=== PATIENT | female | born 1950 ===

== ENCOUNTER 2017-01-12 07:12 | Emergency (ER) | payer OTHER ==
[2017-01-12 07:24] VITALS: BMI 24.7
[2017-01-12 07:40] VITALS: TEMP 98.9
[2017-01-12] MEDS ORDERED: Sodium Chloride 0.9% 1,000 ML IV ONE (07:57)
[2017-01-12] MEDS ORDERED: Sodium Chloride 0.9% 1,000 ML ONE (08:02)
[2017-01-12 08:18] LABS: BASO # 0.1 K/uL (0.0-0.2); BASO % 0.9 % (0.0-2.0); EOS # 0.1 K/uL (0.0-0.7); EOS % 2.3 % (0.0-4.0); HEMATOCRIT 36.8 % (34.0-47.0); LYMPH # 1.7 K/uL (1.0-4.3); LYMPH % 27.5 % (20.0-40.0); MEAN CELL VOLUME 91.5 fL (81.0-99.0); MEAN CORPUSCULAR HGB CONC 33.8 g/dL (33.0-37.0); MEAN PLATELET VOLUME 7.4 fL (7.2-11.7); MONO # 0.5 K/uL (0.0-0.8); MONO % 8.7 % (0.0-10.0); RED CELL DISTRIBUTION WIDTH 12.9 % (11.5-14.5); WHITE BLOOD COUNT 6.2 K/uL (4.8-10.8)
--- NOTE | 2017-01-12 08:20 | C.PDOC ---
History Of Present Illness 66 y/o female presents to ED with complaints of generalized weakness, body aches and feeling shaky for 1 month. Patient states she had blood work done by PMD that was "normal", and she was instructed to follow up with Crossing Supervisor ( DR. Negron). She has rheumatologic blood tests done already, and is scheduled to have test results viewed today by Dr. Negron. Patient denies chest pain, shortness of breath, fever, nausea, vomiting, diarrhea, abdominal pain, cough, runny nose, sore throat, ear pain, dysuria. Time Seen by Provider: 01/12/17 07:39 Chief Complaint (Nursing): Weakness/Neurological Deficit History Per: Patient History/Exam Limitations: no limitations Onset/Duration Of Symptoms: Persistent Current Symptoms Are (Timing): Still Present Past Medical History Reviewed: Historical Data, Nursing Documentation, Vital Signs Vital Signs: Last Vital Signs Temp 98.9 F 01/12/17 07:25 Pulse 75 01/12/17 09:56 Resp 18 01/12/17 09:56 BP 102/62 01/12/17 09:56 Pulse Ox 99 01/12/17 09:56 - Medical History PMH: HTN Surgical History: Cholecystectomy Family History: States: No Known Family Hx - Social History Hx Alcohol Use: No Hx Substance Use: No - Immunization History Hx Tetanus Toxoid Vaccination: Yes Hx Influenza Vaccination: Yes Hx Pneumococcal Vaccination: Yes Review Of Systems Except As Marked, All Systems Reviewed And Found Negative. Constitutional: Positive for: Weakness. Negative for: Fever, Chills Cardiovascular: Negative for: Chest Pain, Palpitations Respiratory: Negative for: Cough, Shortness of Breath Gastrointestinal: Negative for: Nausea, Vomiting, Abdominal Pain, Diarrhea Genitourinary: Negative for: Dysuria, Hematuria Skin: Negative for: Rash Neurological: Negative for: Headache, Dizziness Physical Exam - Physical Exam Appears: Well, Non-toxic, No Acute Distress Skin: Normal Color, Warm, Dry, No Rash Head: Normacephalic Eye(s): bilateral: Normal Inspection Oral Mucosa: Moist Neck: Normal ROM Cardiovascular: Rhythm Regular Respiratory: Normal Breath Sounds, No Rales, No Rhonchi, No Wheezing Gastrointestinal/Abdominal: Normal Exam, Bowel Sounds, Soft, No Tenderness Extremity: Normal ROM, No Pedal Edema, No Calf Tenderness Neurological/Psych: Oriented x3, Normal Speech, Normal Cognition, Normal Motor, Normal Sensation Gait: Steady ED Course And Treatment - Laboratory Results Result Diagrams: 01/12/17 08:11 01/12/17 08:11 O2 Sat by Pulse Oximetry: 96 (RA) Pulse Ox Interpretation: Normal Progress Note: Blood work ordered and reviewed. Patient given IV NS bolus, IV toradol. Reevaluation Time: 09:45 Reassessment Condition: Improved (Patient reassessed, is currently resting comfortably, in no current pain/distress. Blood work unremarkable. Patient instructed to follow up with Dr. Negron within 1 week. She understands she should return to ED if symptoms worsen.) Disposition Counseled Patient/Family Regarding: Studies Performed, Diagnosis, Need For Followup - Disposition Referrals: Lizandro Negron MD [Staff Provider] - Peter Varela DO [Staff Provider] - Disposition: HOME/ ROUTINE Disposition Time: 09:45 Condition: STABLE Additional Instructions: USTED NECESITA SEGUIR CON EL DR NEGRON DENTRO DE 1 SEMANA BEBER MUCHO LQUIDO USE MEDICAMENTOS PARA EL DOLOR KAMRAN SEA NECESARIO DEVUELVA A LA ELGIN DE EMERGENCIA SI LOS SNTOMAS EMPEORARAN Prescriptions: Naproxen [Naprosyn Tab] 375 mg PO BID PRN #15 tab PRN Reason: pain Instructions: Weakness (ED) Forms: General Discharge Instructions, [facility] (Burkinan) Print Language: SETSWANA - Clinical Impression Clinical Impression: Generalized weakness, Body aches - PA / PHOTOGRAPHIC PRESS SCREWMAKER / Resident Statement / has examined the patient and agrees with the treatment plan. - Scribe Statement The provider has reviewed the documentation as recorded by the Robby Boo All medical record entries made by the Scribkelin were at my direction and personally dictated by me. I have reviewed the chart and agree that the record accurately reflects my personal performance of the history, physical exam, medical decision making, and the department course for this patient. I have also personally directed, reviewed, and agree with the discharge instructions and disposition.
[2017-01-12 08:27] LABS: CHLORIDE 105 mmol/L (98-107)
[2017-01-12 08:28] LABS: POTASSIUM 3.9 mmol/L (3.6-5.2); SODIUM 144 mmol/L (132-148)
[2017-01-12 08:30] LABS: AST/SGOT 27 U/L (14-36); BILIRUBIN,TOTAL 0.4 mg/dL (0.2-1.3); CARBON DIOXIDE 24 mmol/L (22-30); GFR AFRICAN-AMERICAN > 60
[2017-01-12 08:31] LABS: ALKALINE PHOSPHATASE 95 U/L (38-126); ALT/SGPT 35 U/L (9-52); BLOOD UREA NITROGEN 9 mg/dL (7-17); CALCIUM 9.8 mg/dl (8.6-10.4); GLUCOSE,RANDOM 124 mg/dL (65-105); TOTAL PROTEIN 7.5 g/dL (6.3-8.3)
[2017-01-12 09:57] VITALS: BP 102/62; PULSE 75; RESP 18
--- NOTE | 2017-01-13 19:58 | CARD ---
APPROVED REPORT EKG Measurement Heart [id number] <Conclusion> Normal sinus rhythm Normal ECG
[2017-01-17 08:04] VITALS: O2SAT 96
== END 2017-01-12 09:57 | disposition home or self-care (01) ==
LOC: C.ER 07:12
DX: R53.1 Weakness (principal)
CPT/HCPCS: 80053; 82550; 82948; 85025; 93005; 96361; 96374; 99285; J1885; J7040

== ENCOUNTER 2017-01-28 07:37 | Emergency (ER) | payer OTHER ==
[2017-01-28 07:37] VITALS: BMI 24.7
[2017-01-28 07:47] VITALS: RESP 18
[2017-01-28] MEDS ORDERED: Dexamethasone 4 mg/1 ml IM STA (08:27)
[2017-01-28] MEDS ORDERED: Dexamethasone 4 mg/1 ml ONE (08:29)
[2017-01-28 09:11] VITALS: BP 103/67; PULSE 66; TEMP 98.1; O2SAT 96
--- NOTE | 2017-01-28 09:28 | C.PDOC ---
History Of Present Illness 66-year-old female, presents to the emergency department with complaints of pain throughout her body. Patient reports she was evaluated for similar symptoms several days ago. States her pain is in bilateral shoulders, hands, hips, back. Patient denies fever, shortness of breath, nausea/vomiting, or any other associated symptoms. No other complaints at this time. Time Seen by Provider: 01/28/17 07:59 Chief Complaint (Nursing): Medical Clearance History Per: Patient History/Exam Limitations: no limitations Onset/Duration Of Symptoms: Days Current Symptoms Are (Timing): Still Present Severity: Moderate Past Medical History Reviewed: Historical Data, Nursing Documentation, Vital Signs Vital Signs: Last Vital Signs Temp 98.1 F 01/28/17 09:10 Pulse 66 01/28/17 09:10 Resp 18 01/28/17 09:10 BP 103/67 01/28/17 09:10 Pulse Ox 96 01/28/17 18:47 - Medical History PMH: HTN Surgical History: Cholecystectomy Family History: States: No Known Family Hx - Social History Hx Alcohol Use: No Hx Substance Use: No - Immunization History Hx Tetanus Toxoid Vaccination: Yes Hx Influenza Vaccination: Yes Hx Pneumococcal Vaccination: Yes Review Of Systems Except As Marked, All Systems Reviewed And Found Negative. Physical Exam - Physical Exam Appears: Well, No Acute Distress Skin: Normal Color, Warm, Dry, No Rash Head: Atraumatic, Normacephalic Eye(s): bilateral: Normal Inspection, PERRL, EOMI Ear(s): Bilateral: Normal Nose: Normal Oral Mucosa: Moist Throat: Normal Neck: Normal ROM, Supple Cardiovascular: Rhythm Regular, No Friction Rub, No Murmur Respiratory: Normal Breath Sounds, No Stridor, No Wheezing Gastrointestinal/Abdominal: Normal Exam, Soft, No Tenderness Back: Normal Inspection, No CVA Tenderness, No Vertebral Tenderness, No Paraspinal Tenderness Extremity: Normal ROM, No Tenderness, No Swelling Pulses: Left Radial: Normal, Right Radial: Normal, Left Dorsalis Pedis: Normal, Right Dorsalis Pedis: Normal Neurological/Psych: Oriented x3, Normal Speech, Normal Cranial Nerves, Normal Motor, Normal Sensation Gait: Steady ED Course And Treatment O2 Sat by Pulse Oximetry: 96 (on RA) Pulse Ox Interpretation: Normal Medical Decision Making Medical Decision Making: The patient has a normal physical exam. On re-exam, the patient reports improvement of symptoms. Lungs are CTA, heart is RRR, Abdomen is soft, non- tender and tolerating PO well. ambulatory in the ED with steady gait. Follow up with the medical doctor/clinic within 1-2 days. Return if worsened. Disposition - Disposition Referrals: Peter Varela DO [Staff Provider] - Disposition: HOME/ ROUTINE Disposition Time: 09:24 Condition: GOOD Additional Instructions: Follow up with the medical doctor as scheduled without fail. Return if worsened. Prescriptions: Naproxen [Naprosyn Tab] 375 mg PO BID #30 tab traMADol [Ultram] 50 mg PO Q6 PRN #10 tab PRN Reason: Pain Instructions: Arthritis (ED) Forms: [employer] (Maltese) Print Language: LUXEMBOURGISH - Clinical Impression Clinical Impression: Joint pain - Scribe Statement The provider has reviewed the documentation as recorded by the Scribe (Linda Mai) All medical record entries made by the Scribe were at my direction and personally dictated by me. I have reviewed the chart and agree that the record accurately reflects my personal performance of the history, physical exam, medical decision making, and the department course for this patient. I have also personally directed, reviewed, and agree with the discharge instructions and disposition.
== END 2017-01-28 09:58 | disposition home or self-care (01) ==
LOC: C.ER 07:37
DX: M25.511 Pain in right shoulder (principal)
CPT/HCPCS: 82948; 96372; 99284; J1100; J1885

== ENCOUNTER 2017-01-28 15:15 | Emergency (ER) | payer OTHER ==
[2017-01-28 15:16] VITALS: BMI 24.7
[2017-01-28] MEDS ORDERED: Sodium Chloride 0.9% 1,000 ML IV ONE (16:34)
[2017-01-28] MEDS ORDERED: Sodium Chloride 0.9% 1,000 ML ONE (16:48)
[2017-01-28 16:51] LABS: BASO # 0.1 K/uL (0.0-0.2); BASO % 1.4 % (0.0-2.0); EOS % 0.5 % (0.0-4.0); HEMATOCRIT 38.4 % (34.0-47.0); LYMPH % 14.9 % (20.0-40.0); MEAN CELL VOLUME 91.8 fL (81.0-99.0); MEAN CORPUSCULAR HEMOGLOBIN 31.5 pg (27.0-31.0); MEAN CORPUSCULAR HGB CONC 34.3 g/dL (33.0-37.0); MEAN PLATELET VOLUME 7.5 fL (7.2-11.7); MONO # 0.1 K/uL (0.0-0.8); MONO % 0.9 % (0.0-10.0); NRBC % 0.3 % (0.0-2.0); RED CELL DISTRIBUTION WIDTH 12.8 % (11.5-14.5)
[2017-01-28 16:58] LABS: CHLORIDE 105 mmol/L (98-107)
[2017-01-28 16:59] LABS: POTASSIUM 4.7 mmol/L (3.6-5.2); SODIUM 142 mmol/L (132-148)
[2017-01-28 16:59] LABS: DRAW SITE VBG; VENOUS BLOOD GAS BASE EXCESS -1.7 mmol/L (0.0-2.0); VENOUS BLOOD GAS PCO2 38 mmHg (40-60); VENOUS BLOOD PH 7.39 (7.32-7.43)
[2017-01-28 17:01] LABS: GFR AFRICAN-AMERICAN > 60
[2017-01-28 17:02] LABS: ALB/GLOB RATIO 1.2 (1.0-2.1); ALKALINE PHOSPHATASE 89 U/L (38-126); ALT/SGPT 27 U/L (9-52); AST/SGOT 32 U/L (14-36); BILIRUBIN,TOTAL 0.5 mg/dL (0.2-1.3); BLOOD UREA NITROGEN 11 mg/dL (7-17); CALCIUM 9.7 mg/dl (8.6-10.4); CARBON DIOXIDE 19 mmol/L (22-30); GLUCOSE,RANDOM 262 mg/dL (65-105); TOTAL PROTEIN 8.6 g/dL (6.3-8.3)
[2017-01-28 17:17] LABS: RBC URINE < 1 /hpf (0-3); URINE BILIRUBIN NEGATIVE (NEGATIVE); URINE BLOOD NEGATIVE (NEGATIVE); URINE COLOR Yellow (YELLOW); URINE GLUCOSE (UA) 3+ mg/dL (Normal); URINE KETONE NEGATIVE (NEGATIVE); URINE LEUKOCYTE ESTERASE NEG Leu/uL (Negative); URINE PROTEIN NEGATIVE (NEGATIVE); URINE UROBILINOGEN NORMAL mg/dL (0.2-1.0); WBC URINE 1 /hpf (0-5)
--- NOTE | 2017-01-28 17:18 | C.PDOC ---
History Of Present Illness 66-year-old female, presents to the emergency department with complaints of high blood sugar. patient states she was seen in ER for pain this morning, and was given a shot. When she went home, she noted her blood sugar to be high, resulting in her to return to the ED for evaluation. States pain has improved. Denies any other complaints. Time Seen by Provider: 01/28/17 15:50 Chief Complaint (Nursing): High Blood Sugar History Per: Patient History/Exam Limitations: no limitations Onset/Duration Of Symptoms: Hrs Past Medical History Reviewed: Historical Data, Nursing Documentation, Vital Signs Vital Signs: Last Vital Signs Temp 97.5 F L 01/28/17 17:47 Pulse 94 H 01/28/17 17:47 Resp 20 01/28/17 17:47 BP 118/74 01/28/17 17:47 Pulse Ox 96 01/28/17 17:47 - Medical History PMH: HTN Surgical History: Cholecystectomy Family History: States: No Known Family Hx - Social History Hx Alcohol Use: No Hx Substance Use: No - Immunization History Hx Tetanus Toxoid Vaccination: Yes Hx Influenza Vaccination: Yes Hx Pneumococcal Vaccination: Yes Review Of Systems Except As Marked, All Systems Reviewed And Found Negative. Constitutional: Negative for: Fever, Chills Cardiovascular: Negative for: Chest Pain Respiratory: Negative for: Shortness of Breath Gastrointestinal: Negative for: Nausea, Vomiting Musculoskeletal: Negative for: Back Pain Neurological: Negative for: Weakness, Numbness, Headache, Dizziness Physical Exam - Physical Exam Appears: Well, Non-toxic, No Acute Distress Skin: Normal Color, Warm, Dry, No Rash Head: Atraumatic, Normacephalic Eye(s): bilateral: Normal Inspection, PERRL, EOMI Nose: Normal Throat: Normal Neck: Normal Cardiovascular: Rhythm Regular Respiratory: Normal Breath Sounds Gastrointestinal/Abdominal: Normal Exam Back: Normal Inspection Extremity: Normal ROM ED Course And Treatment - Laboratory Results Result Diagrams: 01/28/17 16:46 01/28/17 16:46 O2 Sat by Pulse Oximetry: 98 Medical Decision Making Medical Decision Making: r/o dka- labs unremarkable. no e/o of dka. pt states feels better. asking for dc. Disposition - Disposition Disposition: HOME/ ROUTINE Disposition Time: 07:00 Condition: STABLE Additional Instructions: please follow up with your doctor return to er with worsening symptoms or concerns. Instructions: Diabetic Hyperglycemia (ED) Forms: [facility] (Kazakh) - Clinical Impression Clinical Impression: Hyperglycemia - Scribe Statement The provider has reviewed the documentation as recorded by the Scribe (Linda Mai) All medical record entries made by the Scribe were at my direction and personally dictated by me. I have reviewed the chart and agree that the record accurately reflects my personal performance of the history, physical exam, medical decision making, and the department course for this patient. I have also personally directed, reviewed, and agree with the discharge instructions and disposition. Provider Attestation: All medical record entries made by the Scribe were at my direction and personally dictated by me. I have reviewed the chart and agree that the record accurately reflects my personal performance of the history, physical exam, medical decision making, and the department course for this patient. I have also personally directed, reviewed, and agree with the discharge instructions and disposition.
[2017-01-28 17:49] VITALS: BP 118/74; PULSE 94; RESP 20; TEMP 97.5
[2017-01-28 20:06] VITALS: O2SAT 98
== END 2017-01-28 17:52 | disposition home or self-care (01) ==
LOC: C.ER 15:15
DX: R73.9 Hyperglycemia, unspecified (principal); I10 Essential (primary) hypertension
CPT/HCPCS: 80053; 81001; 82803; 85025; 85610; 85730; 96360; 99284; J7040

== ENCOUNTER 2017-02-01 14:42 | Emergency (ER) | payer OTHER ==
[2017-02-01 14:42] VITALS: BMI 24.7
[2017-02-01 15:04] VITALS: RESP 18; TEMP 0
--- NOTE | 2017-02-01 17:26 | C.PDOC ---
History Of Present Illness Pt c/o tremors? on/off. Time Seen by Provider: 02/01/17 15:59 Chief Complaint (Nursing): Medical Clearance History Per: Patient, Family Onset/Duration Of Symptoms: Days (about 1 month) Current Symptoms Are (Timing): Still Present Severity: Mild Past Medical History Reviewed: Historical Data, Nursing Documentation, Vital Signs Vital Signs: Last Vital Signs Temp 0 F L 02/01/17 15:02 Pulse 86 02/01/17 14:46 Resp 18 02/01/17 14:46 BP 109/75 02/01/17 14:46 Pulse Ox 98 02/01/17 14:46 - Medical History PMH: Anxiety, HTN Other PMH: Lupus Surgical History: Cholecystectomy Family History: States: Unknown Family Hx - Social History Hx Alcohol Use: No Hx Substance Use: No - Immunization History Hx Tetanus Toxoid Vaccination: Yes Hx Influenza Vaccination: Yes Hx Pneumococcal Vaccination: Yes Review Of Systems Except As Marked, All Systems Reviewed And Found Negative. Constitutional: Negative for: Fever Cardiovascular: Negative for: Chest Pain Respiratory: Negative for: Shortness of Breath Gastrointestinal: Positive for: Constipation (last BM was 2 days ago). Negative for: Vomiting, Abdominal Pain, Diarrhea, Melena, Hematochezia, Hematemesis Musculoskeletal: Negative for: Neck Pain Skin: Negative for: Rash Neurological: Negative for: Weakness, Numbness, Seizures Physical Exam - Physical Exam Appears: Non-toxic, No Acute Distress Skin: Normal Color, Warm, Dry, No Rash Head: Atraumatic, Normacephalic Eye(s): bilateral: Normal Inspection, PERRL, EOMI Neck: Normal ROM, Supple Cardiovascular: Rhythm Regular Respiratory: Normal Breath Sounds, No Accessory Muscle Use Gastrointestinal/Abdominal: Soft, No Tenderness, No Distention Back: No CVA Tenderness Extremity: Normal ROM, No Pedal Edema, No Calf Tenderness Neurological/Psych: Oriented x3, Normal Motor, Normal Sensation, Other (No tremor at present) Other Neurological Findings: Facial Palsy (right, old. ) ED Course And Treatment O2 Sat by Pulse Oximetry: 98 Pulse Ox Interpretation: Normal Disposition Counseled Patient/Family Regarding: Studies Performed, Diagnosis, Need For Followup, Rx Given - Disposition Referrals: Peter Varela DO [Staff Provider] - Disposition: HOME/ ROUTINE Disposition Time: 17:26 Condition: STABLE Additional Instructions: Follow up with your doctor for further evaluation and treatment. Return to the ER if you develop fever, vomiting, abdominal pain, worsening of symptoms or if you have any other concerns. Prescriptions: Polyethylene Glycol 3350 [Miralax] 17 gm PO DAILY #7 packet Forms: [employer] (Citizen Of [place]), Gen Discharge Inst Citizen [place] - Clinical Impression Clinical Impression: Constipation, Intermittent tremor
[2017-02-01 17:30] VITALS: BP 106/68; PULSE 72; O2SAT 96
== END 2017-02-01 17:30 | disposition home or self-care (01) ==
LOC: C.ER 14:42
DX: R25.1 Tremor, unspecified (principal); K59.00 Constipation, unspecified

== ENCOUNTER 2017-02-02 20:59 | Emergency (ER) | payer OTHER ==
[2017-02-02 20:59] VITALS: BMI 24.7
[2017-02-02 21:24] VITALS: PULSE 91; RESP 18
[2017-02-02] MEDS ORDERED: Lactated Ringer's 1,000 ML IVB ONE (22:02)
[2017-02-02] MEDS ORDERED: Lactated Ringer's 1,000 ML ONE (22:09)
[2017-02-02 22:20] LABS: BASO # 0.1 K/uL (0.0-0.2); BASO % 0.6 % (0.0-2.0); EOS # 0.1 K/uL (0.0-0.7); EOS % 1.1 % (0.0-4.0); HEMATOCRIT 42.6 % (34.0-47.0); LYMPH # 2.7 K/uL (1.0-4.3); LYMPH % 20.6 % (20.0-40.0); MEAN CELL VOLUME 92.1 fL (81.0-99.0); MEAN CORPUSCULAR HEMOGLOBIN 30.8 pg (27.0-31.0); MEAN CORPUSCULAR HGB CONC 33.4 g/dL (33.0-37.0); MEAN PLATELET VOLUME 7.7 fL (7.2-11.7); MONO # 0.4 K/uL (0.0-0.8); RED CELL DISTRIBUTION WIDTH 12.4 % (11.5-14.5)
[2017-02-02 22:25] LABS: CHLORIDE 106 mmol/L (98-107); POTASSIUM 3.9 mmol/L (3.6-5.2); SODIUM 142 mmol/L (132-148)
[2017-02-02 22:27] LABS: ALB/GLOB RATIO 1.2 (1.0-2.1); AST/SGOT 29 U/L (14-36); BILIRUBIN,TOTAL 0.6 mg/dL (0.2-1.3); CARBON DIOXIDE 23 mmol/L (22-30); GFR AFRICAN-AMERICAN > 60; TOTAL PROTEIN 8.8 g/dL (6.3-8.3)
[2017-02-02 22:28] LABS: ALKALINE PHOSPHATASE 98 U/L (38-126); ALT/SGPT 43 U/L (9-52); BLOOD UREA NITROGEN 15 mg/dL (7-17); CALCIUM 10.2 mg/dl (8.6-10.4); GLUCOSE,RANDOM 145 mg/dL (65-105); MAGNESIUM 1.8 mg/dL (1.6-2.3)
--- NOTE | 2017-02-02 22:48 | C.PDOC ---
Time Seen by Provider: 02/02/17 21:53 Chief Complaint (Nursing): Abdominal Pain History Per: Patient, Family Onset/Duration Of Symptoms: Hrs (since this afternoon) Current Symptoms Are (Timing): Still Present Severity: Moderate Location Of Pain/Discomfort: Epigastric Quality Of Discomfort: Unable To Describe, "Pain" Associated Symptoms: Nausea, Diarrhea Exacerbating Factors: Food Alleviating Factors: None Last Bowel Movement: Today Additional History Per: Prior Records Past Medical History Reviewed: Historical Data, Nursing Documentation, Vital Signs Vital Signs: Last Vital Signs Temp 97.9 F 02/02/17 21:21 Pulse 91 H 02/02/17 21:21 Resp 18 02/02/17 21:21 BP 104/66 02/02/17 21:21 Pulse Ox 100 02/02/17 21:21 - Medical History PMH: Anxiety, Arthritis, Gastritis, HTN Surgical History: Cholecystectomy Family History: States: Unknown Family Hx - Social History Hx Alcohol Use: No Hx Substance Use: No - Immunization History Hx Tetanus Toxoid Vaccination: Yes Hx Influenza Vaccination: Yes Hx Pneumococcal Vaccination: Yes Review Of Systems Except As Marked, All Systems Reviewed And Found Negative. Constitutional: Negative for: Fever, Weakness Cardiovascular: Negative for: Chest Pain Respiratory: Negative for: Shortness of Breath Gastrointestinal: Negative for: Vomiting, Melena, Hematochezia, Hematemesis Genitourinary: Negative for: Dysuria Musculoskeletal: Negative for: Neck Pain, Back Pain Skin: Negative for: Rash Neurological: Negative for: Weakness, Numbness Physical Exam - Physical Exam Appears: Non-toxic, No Acute Distress Skin: Normal Color, Warm, Dry, No Rash Head: Atraumatic, Normacephalic Eye(s): bilateral: Normal Inspection, PERRL, EOMI Oral Mucosa: Moist Neck: Normal ROM, Supple Cardiovascular: Rhythm Regular Respiratory: Normal Breath Sounds, No Accessory Muscle Use Gastrointestinal/Abdominal: Soft, No Tenderness, No Distention Back: No CVA Tenderness Extremity: Normal ROM Neurological/Psych: Oriented x3, Normal Motor, Normal Sensation ED Course And Treatment - Laboratory Results Result Diagrams: 02/02/17 22:10 02/02/17 22:10 O2 Sat by Pulse Oximetry: 100 Pulse Ox Interpretation: Normal Progress Note: Pt feels much better and wants to go home. No abdominal pain or tenderness. Tolerating PO. Reassessment Condition: Improved Progress - Interventions Interventions:: Observation, Intravenous fluid - Medications Administered Intravenous: Antiemetic, H-2 leelee - Data Reviewed Data Reviewed: Lab, Old records - Patient Status Patient status: Completely improved - Continuity of Care Discussed patient case with:: Patient, Family-HIPPA compliant, ED Nurse - Patient Plan Patient Plan: Discharge, F/U with PCP, Continue present meds Disposition Counseled Patient/Family Regarding: Studies Performed, Diagnosis, Need For Followup, Rx Given - Disposition Referrals: Peter Varela DO [Staff Provider] - Disposition: HOME/ ROUTINE Disposition Time: 22:48 Condition: IMPROVED Additional Instructions: Follow up with your doctor for further evaluation and treatment. Return to the ER if you develop fever, vomiting, worsening of symptoms or if you have any other concerns. Prescriptions: Ondansetron [Zofran] 4 mg PO Q8H PRN #15 tab PRN Reason: Nausea/Vomiting Instructions: Abdominal Pain (ED) Forms: [employer] ([place] Citizen) Print Language: MALAY - Clinical Impression Clinical Impression: Abdominal pain, Diarrhea
[2017-02-02 23:08] VITALS: BP 102/60; TEMP 97.8; O2SAT 98
== END 2017-02-02 23:16 | disposition home or self-care (01) ==
LOC: C.ER 20:59
DX: R19.7 Diarrhea, unspecified (principal); R10.9 Unspecified abdominal pain
CPT/HCPCS: 80053; 83690; 83735; 85025; 96374; 96375; 99283; J2405; J7120

== ENCOUNTER 2017-02-21 09:01 | Emergency (ER) | payer OTHER ==
[2017-02-21 09:02] VITALS: BMI 24.7
[2017-02-21 09:22] VITALS: RESP 20
[2017-02-21] MEDS ORDERED: Sodium Chloride 0.9% 1,000 ML IV ONE (09:49)
[2017-02-21] MEDS ORDERED: Alum-Mag Hydrox-Simethicone Susp (30 mL) PO STA (09:50)
[2017-02-21] MEDS ORDERED: Sodium Chloride 0.9% 1,000 ML ONE (10:08)
[2017-02-21] MEDS ORDERED: Alum-Mag Hydrox-Simethicone Susp (30 mL) ONE (10:08)
--- NOTE | 2017-02-21 10:15 | C.PDOC ---
History Of Present Illness 66 y/o female, with PMHx of gastritis, presents to ED for evaluation of epigastric abdominal pain associated with nausea since yesterday. Notes trying to see her PMD, Dr. Varela, but was not able to see him. Otherwise, denies any vomiting, diarrhea, back pain, fever, or chills. Time Seen by Provider: 02/21/17 09:28 Chief Complaint (Nursing): Abdominal Pain History Per: Patient History/Exam Limitations: no limitations Onset/Duration Of Symptoms: Days (1) Current Symptoms Are (Timing): Still Present Location Of Pain/Discomfort: Epigastric Radiation Of Pain To:: None Quality Of Discomfort: "Pain" Associated Symptoms: Nausea. denies: Vomiting, Diarrhea, Loss Of Appetite, Back Pain, Chest Pain, Constipation, Urinary Symptoms Exacerbating Factors: None Alleviating Factors: None Recent travel outside of the [place]: No Additional History Per: Patient Abnormal Vaginal Bleeding: No Past Medical History Reviewed: Historical Data, Nursing Documentation, Vital Signs Vital Signs: Last Vital Signs Temp 98.1 F 02/21/17 12:00 Pulse 72 02/21/17 12:00 Resp 20 02/21/17 12:00 BP 100/64 02/21/17 12:00 Pulse Ox 97 02/21/17 12:00 - Medical History PMH: Anxiety, Arthritis, Gastritis, HTN Surgical History: Cholecystectomy, (3) Family History: States: Unknown Family Hx - Social History Hx Alcohol Use: No Hx Substance Use: No - Immunization History Hx Tetanus Toxoid Vaccination: Yes Hx Influenza Vaccination: Yes Hx Pneumococcal Vaccination: Yes Review Of Systems Except As Marked, All Systems Reviewed And Found Negative. Constitutional: Negative for: Fever, Chills Gastrointestinal: Positive for: Nausea, Abdominal Pain. Negative for: Vomiting , Diarrhea, Constipation Genitourinary: Negative for: Dysuria, Frequency, Hematuria Musculoskeletal: Negative for: Back Pain Physical Exam - Physical Exam Appears: Non-toxic, No Acute Distress Skin: Warm, Dry, No Rash Head: Atraumatic, Normacephalic Eye(s): bilateral: Normal Inspection Oral Mucosa: Moist Neck: Supple Chest: Symmetrical Cardiovascular: Rhythm Regular, No Murmur Respiratory: Normal Breath Sounds, No Rales, No Rhonchi, No Wheezing Gastrointestinal/Abdominal: Soft, Tenderness (mild epigastric), No Guarding, No Rebound Back: No CVA Tenderness Extremity: Normal ROM, No Deformity Neurological/Psych: Oriented x3, Normal Speech Gait: Steady ED Course And Treatment - Laboratory Results Result Diagrams: 02/21/17 10:06 02/21/17 10:06 Lab Interpretation: Normal O2 Sat by Pulse Oximetry: 98 (on RA) Pulse Ox Interpretation: Normal Progress Note: Blood work, UA ordered and reviewed. Patient was given Maalox, Pepcid, Zofran, and IV fluids. On re-evaluation feeling better, abdomen soft non-tender Reassessment Condition: Improved Disposition Counseled Patient/Family Regarding: Studies Performed, Diagnosis, Need For Followup, Rx Given - Disposition Referrals: [facility] [Outside] [facility] [Outside] Disposition: HOME/ ROUTINE Disposition Time: 11:50 Condition: IMPROVED Additional Instructions: Follow up with your PMD or clinic for further evaluation Prescriptions: Sucralfate [Carafate] 1 gm PO Q8 #120 ml Instructions: Abdominal Pain (ED) Forms: [employer] (Estonian) - POA Present On Arrival: None - Clinical Impression Clinical Impression: Abdominal pain, Gastritis - PA / ASSOCIATE DIRECTOR FINANCE / Resident Statement MD/DO has reviewed & agrees with the documentation as recorded. - Scribe Statement The provider has reviewed the documentation as recorded by the Malvinibkelin Diamond All medical record entries made by the Robby were at my direction and personally dictated by me. I have reviewed the chart and agree that the record accurately reflects my personal performance of the history, physical exam, medical decision making, and the department course for this patient. I have also personally directed, reviewed, and agree with the discharge instructions and disposition.
[2017-02-21 10:22] LABS: RBC URINE 1 /hpf (0-3); URINE BILIRUBIN NEGATIVE (NEGATIVE); URINE BLOOD NEGATIVE (NEGATIVE); URINE COLOR Yellow (YELLOW); URINE GLUCOSE (UA) NORMAL (Normal); URINE KETONE NEGATIVE (NEGATIVE); URINE LEUKOCYTE ESTERASE NEG Leu/uL (Negative); URINE PROTEIN NEGATIVE (NEGATIVE); URINE UROBILINOGEN NORMAL mg/dL (0.2-1.0); WBC URINE 1 /hpf (0-5)
[2017-02-21 10:26] LABS: BASO # 0.1 K/uL (0.0-0.2); BASO % 1.1 % (0.0-2.0); EOS # 0.1 K/uL (0.0-0.7); HEMATOCRIT 36.6 % (34.0-47.0); LYMPH # 1.5 K/uL (1.0-4.3); LYMPH % 22.3 % (20.0-40.0); MEAN CELL VOLUME 91.1 fL (81.0-99.0); MEAN CORPUSCULAR HEMOGLOBIN 31.7 pg (27.0-31.0); MEAN CORPUSCULAR HGB CONC 34.7 g/dL (33.0-37.0); MEAN PLATELET VOLUME 7.9 fL (7.2-11.7); MONO # 0.5 K/uL (0.0-0.8); MONO % 7.1 % (0.0-10.0); RED CELL DISTRIBUTION WIDTH 12.6 % (11.5-14.5); WHITE BLOOD COUNT 6.7 K/uL (4.8-10.8)
[2017-02-21 10:37] LABS: CHLORIDE 102 mmol/L (98-107)
[2017-02-21 10:38] LABS: POTASSIUM 3.9 mmol/L (3.6-5.2); SODIUM 141 mmol/L (132-148)
[2017-02-21 10:40] LABS: ALKALINE PHOSPHATASE 87 U/L (38-126); ALT/SGPT 37 U/L (9-52); AST/SGOT 38 U/L (14-36); BILIRUBIN,TOTAL 0.4 mg/dL (0.2-1.3); BLOOD UREA NITROGEN 10 mg/dL (7-17); CARBON DIOXIDE 23 mmol/L (22-30); GFR AFRICAN-AMERICAN > 60; TOTAL PROTEIN 8.4 g/dL (6.3-8.3)
[2017-02-21 10:41] LABS: CALCIUM 9.8 mg/dl (8.6-10.4); GLUCOSE,RANDOM 129 mg/dL (65-105)
[2017-02-21 12:05] VITALS: BP 100/64; PULSE 72; TEMP 98.1
[2017-02-21 18:19] VITALS: O2SAT 98
== END 2017-02-21 12:05 | disposition home or self-care (01) ==
LOC: C.ER 09:01
DX: K29.70 Gastritis, unspecified, without bleeding (principal); I10 Essential (primary) hypertension
CPT/HCPCS: 80053; 81001; 83690; 85025; 96361; 96374; 96375; 99285; J2405; J7040

== ENCOUNTER 2017-02-28 07:31 | Emergency (ER) | payer OTHER ==
[2017-02-28 07:31] VITALS: BMI 24.7
[2017-02-28 07:40] VITALS: O2SAT 98
[2017-02-28] MEDS ORDERED: Sodium Chloride 0.9% 1,000 ML IV ONE (07:57)
[2017-02-28] MEDS ORDERED: Alum-Mag Hydrox-Simethicone Susp (30 mL) PO STA (07:58)
--- NOTE | 2017-02-28 08:07 | C.PDOC ---
History Of Present Illness <Nicolle Aguilar - Last Filed: 02/28/17 12:12> <Nori Lerma - Last Filed: 02/28/17 14:58> 66 y/o female with PMHx of HTN, DM and Lupus presents to ED with complaints of worsening upper abdominal pain since last night. Patient was seen at [facility] yesterday and had an ultrasound that was negative and came to ED for further evaluation. Patient denies fever, chills, nausea, vomiting, diarrhea, back pain , or any other complaints at this time. (Nicolle Aguilar) History Per: Patient History/Exam Limitations: no limitations Onset/Duration Of Symptoms: Days Current Symptoms Are (Timing): Still Present <Nicolle Aguilar - Last Filed: 02/28/17 12:12> <Nori Lerma - Last Filed: 02/28/17 14:58> Time Seen by Provider: 02/28/17 07:44 Chief Complaint (Nursing): Abdominal Pain Past Medical History - Medical History PMH: Anxiety, Arthritis, Gastritis, HTN Surgical History: Cholecystectomy, (3) Family History: States: No Known Family Hx - Social History Hx Alcohol Use: No Hx Substance Use: No - Immunization History Hx Tetanus Toxoid Vaccination: Yes Hx Influenza Vaccination: Yes Hx Pneumococcal Vaccination: Yes <Nicolle Aguilar - Last Filed: 02/28/17 12:12> Vital Signs: Last Vital Signs Temp 98 F 02/28/17 10:20 Pulse 69 02/28/17 10:20 Resp 18 02/28/17 10:20 BP 103/69 02/28/17 10:20 Pulse Ox 98 02/28/17 12:13 Review Of Systems Constitutional: Negative for: Fever, Chills Gastrointestinal: Positive for: Abdominal Pain. Negative for: Nausea, Vomiting , Diarrhea Genitourinary: Negative for: Dysuria, Hematuria Musculoskeletal: Negative for: Back Pain Skin: Negative for: Rash <Nicolle Aguilar - Last Filed: 02/28/17 12:12> Physical Exam - Physical Exam Appears: Non-toxic, No Acute Distress Skin: Normal Color, Warm, Dry, No Rash Head: Atraumatic, Normacephalic Oral Mucosa: Moist Neck: Normal ROM, Supple Chest: Symmetrical Cardiovascular: Rhythm Regular Respiratory: Normal Breath Sounds, No Rales, No Rhonchi, No Wheezing Gastrointestinal/Abdominal: Soft, No Tenderness, No Guarding, No Rebound Back: No CVA Tenderness Neurological/Psych: Oriented x3 <Nicolle Aguilar - Last Filed: 02/28/17 12:12> ED Course And Treatment - Laboratory Results Result Diagrams: 02/28/17 08:31 02/28/17 08:31 Lab Interpretation: Normal ECG: Interpreted By Sc ECG Rhythm: Sinus Rhythm Rate From EC O2 Sat by Pulse Oximetry: 98 (RA) Pulse Ox Interpretation: Normal <Nicolle Aguilar - Last Filed: 02/28/17 12:12> - Laboratory Results Result Diagrams: 02/28/17 08:31 02/28/17 08:31 <Nori Lerma - Last Filed: 02/28/17 14:58> Medical Decision Making <Nicolle Aguilar - Last Filed: 02/28/17 12:12> <Nori Lerma - Last Filed: 02/28/17 14:58> Medical Decision Making: Plan: Blood work, UA, Pepcid, Maalox (Nicolle Aguilar) Disposition Counseled Patient/Family Regarding: Studies Performed, Diagnosis, Need For Followup, Rx Given - Disposition Disposition Time: 10:20 - POA Present On Arrival: None <Nicolle Aguilar - Last Filed: 02/28/17 12:12> <Nori Lerma - Last Filed: 02/28/17 14:58> - Disposition Referrals: [facility] [Outside] [facility] [Outside] Disposition: HOME/ ROUTINE Condition: IMPROVED Additional Instructions: Follow up with your PMD or clinic for further evaluation Prescriptions: Famotidine/Ca Carb/Mag Hydrox [Pepcid Complete Tablet Chew] 1 each PO BID #20 tab.chew Instructions: Abdominal Pain (ED) Forms: [employer] (Slovenian) Print Language: KINYARWANDA - Clinical Impression Clinical Impression: Gastritis, Abdominal pain - PA / PHYSICAL THERAPY NURSE / Resident Statement MD/DO has reviewed & agrees with the documentation as recorded. - Scribe Statement The provider has reviewed the documentation as recorded by the Scribe <Nicolle Aguilar - Last Filed: 02/28/17 12:12> <Nori Lerma - Last Filed: 02/28/17 14:58> - Scribe Statement Samanta Boo All medical record entries made by the Scribe were at my direction and personally dictated by me. I have reviewed the chart and agree that the record accurately reflects my personal performance of the history, physical exam, medical decision making, and the department course for this patient. I have also personally directed, reviewed, and agree with the discharge instructions and disposition. (Nicolle Aguilar)
[2017-02-28 08:22] LABS: RBC URINE 1 /hpf (0-3); URINE BILIRUBIN NEGATIVE (NEGATIVE); URINE BLOOD NEGATIVE (NEGATIVE); URINE COLOR Yellow (YELLOW); URINE GLUCOSE (UA) NORMAL (Normal); URINE KETONE NEGATIVE (NEGATIVE); URINE LEUKOCYTE ESTERASE NEG Leu/uL (Negative); URINE PROTEIN NEGATIVE (NEGATIVE); URINE UROBILINOGEN NORMAL mg/dL (0.2-1.0); WBC URINE < 1 /hpf (0-5)
[2017-02-28] MEDS ORDERED: Alum-Mag Hydrox-Simethicone Susp (30 mL) ONE (08:36)
[2017-02-28] MEDS ORDERED: Sodium Chloride 0.9% 1,000 ML ONE (08:36)
[2017-02-28 08:48] LABS: BASO # 0.1 K/uL (0.0-0.2); BASO % 1.3 % (0.0-2.0); EOS # 0.2 K/uL (0.0-0.7); EOS % 2.6 % (0.0-4.0); HEMATOCRIT 35.4 % (34.0-47.0); LYMPH # 1.7 K/uL (1.0-4.3); LYMPH % 26.8 % (20.0-40.0); MEAN CELL VOLUME 91.2 fL (81.0-99.0); MEAN CORPUSCULAR HEMOGLOBIN 31.5 pg (27.0-31.0); MEAN CORPUSCULAR HGB CONC 34.5 g/dL (33.0-37.0); MEAN PLATELET VOLUME 8.2 fL (7.2-11.7); MONO # 0.5 K/uL (0.0-0.8); MONO % 8.1 % (0.0-10.0); NRBC % 0.1 % (0.0-2.0); RED CELL DISTRIBUTION WIDTH 12.4 % (11.5-14.5); WHITE BLOOD COUNT 6.2 K/uL (4.8-10.8)
[2017-02-28 09:04] LABS: CHLORIDE 102 mmol/L (98-107); SODIUM 135 mmol/L (132-148)
[2017-02-28 09:07] LABS: ALKALINE PHOSPHATASE 79 U/L (38-126); ALT/SGPT 45 U/L (9-52); AST/SGOT 39 U/L (14-36); BILIRUBIN,TOTAL 0.5 mg/dL (0.2-1.3); BLOOD UREA NITROGEN 10 mg/dL (7-17); CARBON DIOXIDE 23 mmol/L (22-30); GFR AFRICAN-AMERICAN > 60; GLUCOSE,RANDOM 115 mg/dL (65-105); TOTAL PROTEIN 8.4 g/dL (6.3-8.3)
[2017-02-28 09:08] LABS: CALCIUM 9.7 mg/dl (8.6-10.4)
[2017-02-28 09:48] LABS: POTASSIUM 3.9 mmol/L (3.6-5.2)
[2017-02-28 10:21] VITALS: BP 103/69; PULSE 69; RESP 18; TEMP 98
--- NOTE | 2017-03-01 21:20 | CARD ---
APPROVED REPORT EKG Measurement Heart [id number] <Conclusion> Normal sinus rhythm Normal ECG
== END 2017-02-28 10:33 | disposition home or self-care (01) ==
LOC: C.ER 07:31
DX: K29.70 Gastritis, unspecified, without bleeding (principal); R10.10 Upper abdominal pain, unspecified
CPT/HCPCS: 80053; 81001; 83690; 85025; 93005; 96361; 96374; 99285; J7040